=== PATIENT | male | born 1965 | race Caucasian/White ===

== ENCOUNTER 2016-12-06 16:00 | Emergency (ER) | payer MEDICAID ==
[~2016-12-06] VITALS: Ht 165.1 cm; Wt 88.9 kg
[2016-12-06 18:59] VITALS: BP 142/95
== END 2016-12-06 18:59 | disposition home or self-care (01) ==
LOC: ED 16:00
DX: F10.129 Alcohol abuse with intoxication, unspecified (principal); F32.9 Major depressive disorder, single episode, unspecified; I10 Essential (primary) hypertension; Z79.899 Other long term (current) drug therapy

== ENCOUNTER 2017-05-03 00:54 | Emergency (ER) | payer MEDICAID ==
[2017-05-03 01:46] VITALS: BP 188/117
== END 2017-05-03 01:46 | disposition other institution (70) ==
LOC: ED 00:54
DX: S00.81XA Abrasion of other part of head, initial encounter (principal); I10 Essential (primary) hypertension; X58.XXXA Exposure to other specified factors, initial encounter; Y93.89 Activity, other specified; Y99.8 Other external cause status; Y92.89 Other specified places as the place of occurrence of the external cause
CPT/HCPCS: 90715